=== PATIENT | male | born 1990 | race Hispanic/Latino ===

== ENCOUNTER 2018-06-20 04:57 | Emergency (ER) | payer SELFPAY ==
[2018-06-20 05:23] VITALS: BMI 23.2
--- NOTE | 2018-06-20 06:05 | ED PDOC ---
Arrival/HPI - General Chief Complaint: Psychiatric Evaluation Time Seen by Provider: 06/20/18 04:59 Historian: Parent - History of Present Illness Narrative History of Present Illness (Text): 06/20/18 05:05 27 y/o with no significant past medical history, who was found by and brought in to the emergency department by police for further evaluation after mother of patient called them reporting he was wandering in street for hours. As per mother, patient was wandering since 22:00. Mother states she followed patient in a car. Patient admits to hearing voices in his head to refuse to turn himself to authorities or divulge information to health personnel. He is escorted in by police and denies SI/HI at this time. A more complete HPI is unable to be obtained due to patient's combative state & reluctance to divulge information Time/Duration: Prior to Arrival Symptom Course: Unchanged Activities at Onset: Emotional Upset Context: Walking (found wandering in street by police) Past Medical History - Provider Review Nursing Documentation Reviewed: Yes - Travel History Have you recently traveled outside [place] w/in the past 3 mons?: No - Infectious Disease Hx of Infectious Diseases: None - Tetanus Immunization Tetanus Immunization: Up to Date - Past Medical History Past Medical History: No Previous - Cardiac Hx Cardiac Disorders: No - Psychiatric Hx Depression: No Hx Emotional Abuse: No Hx Hallucinations: Yes Hx Physical Abuse: No Hx Schizophrenia: Yes Hx Substance Use: Yes (occasional marijuana) - Past Surgical History Past Surgical History: No Previous - Suicidal Assessment Feels Threatened In Home Enviroment: No Family/Social History - Physician Review Nursing Documentation Reviewed: Yes Family/Social History: No Known Family HX Smoking Status: Never Smoked Hx Alcohol Use: No Hx Substance Use: Yes (occasional marijuana) Hx Substance Use Treatment: No Allergies/Home Meds Allergies/Adverse Reactions: Allergies No Known Allergies Allergy (Verified 06/18/14 23:52) Home Medications: Home Meds Medication Instructions Recorded Confirmed Risperidone [Risperdal] 2 mg PO DAILY 06/20/18 06/20/18 Review of Systems - Physician Review All systems were reviewed & negative as marked: Yes - Review of Systems Systems not reviewed;Unavailable: Psychotic Psychiatric: absent: Normal Physical Exam - Physical Exam Narrative Physical Exam (Text): 06/20/18 05:05 Physical exam results limited due to patient's limited willingness to comply with exam Vital Signs Reviewed: Yes Vital Signs Temp Pulse Resp BP Pulse Ox 06/20/18 15:40 98.0 F 69 19 98 06/20/18 15:14 98.1 F 66 18 112/69 98 06/20/18 11:11 98.3 F 60 20 107/63 97 06/20/18 07:30 86 18 122/71 100 06/20/18 05:30 98.2 F 101 H 18 124/79 100 Temperature: Afebrile Blood Pressure: Normal Pulse: Tachycardic Respiratory Rate: Normal Appearance: Positive for: Well-Appearing, Non-Toxic Pain Distress: None Mental Status: Positive for: Alert and Oriented X 3 - Systems Exam Respiratory/Chest: Present: Clear to Auscultation, Good Air Exchange. No: Wheezes Cardiovascular: Present: Normal S1, S2, Peripheal Pulses Present, Tachycardic Abdomen: Present: Normal Bowel Sounds. No: Tenderness, Distention, Peritoneal Signs Neurological: Present: GCS=15, CN II-XII Intact, Speech Normal Psychiatric: Present: Alert, Anxious, Agitated Medical Decision Making ED Course and Treatment: 06/20/18 05:05 Impression: 27 [email or web address] Plan: -- EKG -- Labs -- Ativan -- Haldol -- Urinalysis --Psych evaluation -- Reassess and disposition Progress Notes: 06/20/18 015 Patient noted to be beligerent towards staff. Physical and chemical restraints applied. [facility] admitting representative called and will be in to evaluate patient at 0700hrs. EKG: Ordered, reviewed, and independently interpreted the EKG. Interpretation : NSR at [address] elevation. 06/20/18 [address] Kristine Alonso who will resume the patient's care. - Lab Interpretations Lab Results: 06/20/18 05:56 06/20/18 05:56 Lab Results 06/20/18 11:00: Urine Color Yellow, Urine Appearance Clear, Urine pH 6.0, Ur Specific [place] 1.025, Urine Protein Trace H, Urine Glucose (UA) Negative, Urine Ketones 15 H, Urine Blood Negative, Urine Nitrate Negative, Urine Bilirubin Negative, Urine Urobilinogen 1.0 H, Ur Leukocyte Esterase Negative, Urine RBC 0 - 2, Urine WBC 0 - 2, Ur Epithelial Cells None, Amorphous Sediment Few, Urine Bacteria Many, Hyaline Casts 0 - 2, Urine Other Uyeast 06/20/18 11:00: Urine Opiates Screen Negative, Urine Methadone Screen Negative, Ur Barbiturates Screen Negative, Ur Phencyclidine Scrn Negative, Ur Amphetamines Screen Negative, U Benzodiazepines Scrn Negative, U Oth Cocaine Metabols Negative, U Cannabinoids Screen Positive H 06/20/18 05:56: Salicylates < 1 L, Acetaminophen < 10.0 L 06/20/18 05:56: Alcohol, Quantitative < 10 06/20/18 05:56: Sodium 141, Potassium 3.3 L, Chloride 99, Carbon Dioxide 24, Anion Gap 21 H, BUN 14, Creatinine 0.8, Est GFR ( Amer) > 60, Est GFR ( Non-Af Amer) > 60, Random Glucose 149 H, Calcium 9.9, Total Bilirubin 1.1, AST 38, ALT 38, Alkaline Phosphatase 85, Troponin I < 0.01, Total Protein 7.9, Albumin 5.0 H, Globulin 2.9, Albumin/Globulin Ratio 1.7 06/20/18 05:56: WBC 7.0, RBC 4.97, Hgb 15.6, Hct 43.3, MCV 87.1, MCH 31.4, MCHC 36.0, RDW 11.9, Plt Count 209, MPV 9.7, Gran % 42.5 L, Lymph % (Auto) 49.2 H, [place] % (Auto) 7.7 H, Eos % (Auto) 0.3 L, Baso % (Auto) 0.3, Gran # 2.96, Lymph # (Auto) 3.4, [place] # (Auto) 0.5, Eos # (Auto) 0.0, Baso # (Auto) 0.02 - RAD Interpretation Radiology Orders: 06/20/18 08:25 CHEST PORTABLE [RAD] Stat - EKG Interpretation Interpreted by ED Physician: Yes Type: 12 lead EKG - Medication Orders Current Medication Orders: Discontinued Medications Haloperidol Lactate (Haldol) 5 mg IM STAT STA PRN Reason: Protocol Stop: 06/20/18 05:57 Last Admin: 06/20/18 05:56 Dose: 5 mg IM Administration Charges Document 06/20/18 05:56 AD (Rec: 06/20/18 06:09 AD [id number]) Injection Site MAR Injection Site Left Vastus Lateralis Charges for Administration # of IM Administrations 1 Lorazepam (Ativan) 2 mg IM ONCE ONE PRN Reason: Protocol Stop: 06/20/18 05:57 Last Admin: 06/20/18 05:56 Dose: 2 mg IM Administration Charges Document 06/20/18 05:56 AD (Rec: 06/20/18 06:08 AD [id number]) Injection Site MAR Injection Site Right Vastus Lateralis Charges for Administration # of IM Administrations 1 - Scribe Statement The provider has reviewed the documentation as recorded by the Scribe Ammy Benitezh All medical record entries made by the Scribe were at my direction and personally dictated by me. I have reviewed the chart and agree that the record accurately reflects my personal performance of the history, physical exam, medical decision making, and the department course for this patient. I have also personally directed, reviewed, and agree with the discharge instructions and disposition. Disposition/Present on Arrival - Present on Arrival Any Indicators Present on Arrival: No History of DVT/PE: No History of Uncontrolled Diabetes: No Urinary Catheter: No History of Decub. Ulcer: No History Surgical Site Infection Following: None - Disposition Have Diagnosis and Disposition been Completed?: Yes Diagnosis: Schizophrenia Disposition: HOME/ ROUTINE Disposition Time: 07:00 Condition: STABLE Discharge Instructions (ExitCare): Schizophrenia Print Language: MAORI Additional Instructions: JEANE PENNINGTON, thank you for letting us take care of you today. Your provider was Dr. Redd Alonso and you were treated for psychosis. The emergency medical care you received today was directed at your acute symptoms. If you were prescribed any medication, please fill it and take as directed. It may take several days for your symptoms to resolve. Return to the Emergency Department if your symptoms worsen, do not improve, or if you have any other problems. Please contact your doctor or call one of the physicians/clinics you have been referred to that are listed on the Patient Visit Information form that is included in your discharge packet. Bring any paperwork you were given at discharge with you along with any medications you are taking to your follow up visit. Our treatment cannot replace ongoing medical care by a primary care provider outside of the emergency department. Thank you for allowing the [facility] team to be part of your care today. If you had an X-Ray or CT scan: A Radiologist will review the ED reading if any change in treatment is needed we will contact you. If you had a blood, urine, or wound culture: It will take several days for the results, if any change in treatment is needed we will contact you. If you had an STI test: It will take 48 hours for the results. Please call after 1 week if you have not heard back. Referrals: FAMILY PROVIDER,NO [Primary Care Provider] - Follow up with primary Forms: [place] (Maldivian)
[2018-06-20 06:16] LABS: ALB/GLOB RATIO 1.7 (1.1-1.8); ALT/SGPT 38 U/L (7-56); AST/SGOT 38 U/L (17-59); BLOOD UREA NITROGEN 14 mg/dL (7-21); CALCIUM 9.9 mg/dL (8.4-10.5); GFR AFRICAN-AMERICAN > 60; GFR NON-AFRICAN AMERICAN > 60
[2018-06-20 06:17] LABS: ACETAMINOPHEN < 10.0 ug/ml (10.0-20.0); BASO # 0.02 K/mm3 (0.0-2.0); BASO % 0.3 % (0.0-3.0); EOS % 0.3 % (1.5-5.0); GRAN # 2.96 (1.4-6.5); GRAN % 42.5 % (50.0-68.0); HEMOGLOBIN 15.6 g/dL (14.0-18.0); LYMPH # 3.4 (1.2-3.4); LYMPH % 49.2 % (22.0-35.0); MEAN CELL VOLUME 87.1 fl (80.0-105.0); MEAN CORPUSCULAR HEMOGLOBIN 31.4 pg (25.0-35.0); MEAN PLATELET VOLUME 9.7 fl (7.0-11.0); MONO # 0.5 (0.1-0.6); MONO % 7.7 % (1.0-6.0); RBC 4.97 10^6/uL (3.5-6.1); RED CELL DISTRIBUTION WIDTH 11.9 % (11.5-14.5); SALICYLATE < 1 mg/dL (2.0-20.0)
[2018-06-20 06:27] LABS: TROPONIN I < 0.01 ng/mL
--- NOTE | 2018-06-20 07:36 | ED PDOC ---
Physical Exam Vital Signs Temp Pulse Resp BP Pulse Ox 06/20/18 15:14 98.1 F 66 18 112/69 98 06/20/18 11:11 98.3 F 60 20 107/63 97 06/20/18 07:30 86 18 122/71 100 06/20/18 05:30 98.2 F 101 H 18 124/79 100 Medical Decision Making ED Course and Treatment: 06/20/18 07:[address] Taveras, patient presented to the ED with acute agitation and psychosis with hx psychotic mental disorder. Patient was not able to be talked down and required physical and medication sedation to control behavior. Patient being worked up for acute on recurrent psychosis, patient reported to not taking his prescribed medications. 06/20/18 08:14 As per mother , patient has a hx of schizophreniam, dx 1 year ago, was on stable regimen of ripseridone 4mg which was decreased to 2mg for the past 5 weeks. 06/20/18 11:22 patient is medically stable for psych eval, admit, trasfer if needed. Case has been discussed with [facility] and the patient is being screened for [facility] admit. 06/20/18 15:48 patient seen by [facility], patient has been cleared for discharge, patient does not appear to be an acute threat to himself or others. patient does not require hospitalization and can be discharged home. - Lab Interpretations Lab Results: 06/20/18 05:56 06/20/18 05:56 Lab Results 06/20/18 11:00: Urine Color Yellow, Urine Appearance Clear, Urine pH 6.0, Ur Specific [place] 1.025, Urine Protein Trace H, Urine Glucose (UA) Negative, Urine Ketones 15 H, Urine Blood Negative, Urine Nitrate Negative, Urine Bilirubin Negative, Urine Urobilinogen 1.0 H, Ur Leukocyte Esterase Negative, Urine RBC 0 - 2, Urine WBC 0 - 2, Ur Epithelial Cells None, Amorphous Sediment Few, Urine Bacteria Many, Hyaline Casts 0 - 2, Urine Other Uyeast 06/20/18 11:00: Urine Opiates Screen Negative, Urine Methadone Screen Negative, Ur Barbiturates Screen Negative, Ur Phencyclidine Scrn Negative, Ur Amphetamines Screen Negative, U Benzodiazepines Scrn Negative, U Oth Cocaine Metabols Negative, U Cannabinoids Screen Positive H 06/20/18 05:56: Salicylates < 1 L, Acetaminophen < 10.0 L 06/20/18 05:56: Alcohol, Quantitative < 10 06/20/18 05:56: Sodium 141, Potassium 3.3 L, Chloride 99, Carbon Dioxide 24, Anion Gap 21 H, BUN 14, Creatinine 0.8, Est GFR ( Amer) > 60, Est GFR ( Non-Af Amer) > 60, Random Glucose 149 H, Calcium 9.9, Total Bilirubin 1.1, AST 38, ALT 38, Alkaline Phosphatase 85, Troponin I < 0.01, Total Protein 7.9, Albumin 5.0 H, Globulin 2.9, Albumin/Globulin Ratio 1.7 06/20/18 05:56: WBC 7.0, RBC 4.97, Hgb 15.6, Hct 43.3, MCV 87.1, MCH 31.4, MCHC 36.0, RDW 11.9, Plt Count 209, MPV 9.7, Gran % 42.5 L, Lymph % (Auto) 49.2 H, [place] % (Auto) 7.7 H, Eos % (Auto) 0.3 L, Baso % (Auto) 0.3, Gran # 2.96, Lymph # (Auto) 3.4, [place] # (Auto) 0.5, Eos # (Auto) 0.0, Baso # (Auto) 0.02 - RAD Interpretation Narrative RAD Interpretations (Text): 06/20/18 09:00 cxr my read: no focal infiltrate, no ptx, no cardiomegaly Radiology Orders: 06/20/18 08:25 CHEST PORTABLE [RAD] Stat Test Engineering Intern: ED Physician - Medication Orders Current Medication Orders: Discontinued Medications Haloperidol Lactate (Haldol) 5 mg IM STAT STA PRN Reason: Protocol Stop: 06/20/18 05:57 Last Admin: 06/20/18 05:56 Dose: 5 mg IM Administration Charges Document 06/20/18 05:56 AD (Rec: 06/20/18 06:09 AD [id number]) Injection Site MAR Injection Site Left Vastus Lateralis Charges for Administration # of IM Administrations 1 Lorazepam (Ativan) 2 mg IM ONCE ONE PRN Reason: Protocol Stop: 06/20/18 05:57 Last Admin: 06/20/18 05:56 Dose: 2 mg IM Administration Charges Document 06/20/18 05:56 AD (Rec: 06/20/18 06:08 AD [id number]) Injection Site MAR Injection Site Right Vastus Lateralis Charges for Administration # of IM Administrations 1 - Scribe Statement The provider has reviewed the documentation as recorded by the Scribe Rupinder Reynolds All medical record entries made by the Scribe were at my direction and personally dictated by me. I have reviewed the chart and agree that the record accurately reflects my personal performance of the history, physical exam, medical decision making, and the department course for this patient. I have also personally directed, reviewed, and agree with the discharge instructions and disposition. Disposition/Present on Arrival - Present on Arrival Any Indicators Present on Arrival: No History of DVT/PE: No History of Uncontrolled Diabetes: No Urinary Catheter: No History of Decub. Ulcer: No History Surgical Site Infection Following: None - Disposition Have Diagnosis and Disposition been Completed?: Yes Diagnosis: Schizophrenia Disposition: HOME/ ROUTINE Disposition Time: 15:49 Patient Problems: Current Active Problems Problem Status Onset Schizophrenia Acute Condition: STABLE Discharge Instructions (ExitCare): Schizophrenia Print Language: KYRGYZ Additional Instructions: JEANE PENNINGTON, thank you for letting us take care of you today. Your provider was Dr. Redd Alonso and you were treated for psychosis. The emergency medical care you received today was directed at your acute symptoms. If you were prescribed any medication, please fill it and take as directed. It may take several days for your symptoms to resolve. Return to the Emergency Department if your symptoms worsen, do not improve, or if you have any other problems. Please contact your doctor or call one of the physicians/clinics you have been referred to that are listed on the Patient Visit Information form that is included in your discharge packet. Bring any paperwork you were given at discharge with you along with any medications you are taking to your follow up visit. Our treatment cannot replace ongoing medical care by a primary care provider outside of the emergency department. Thank you for allowing the [facility] team to be part of your care today. If you had an X-Ray or CT scan: A Radiologist will review the ED reading if any change in treatment is needed we will contact you. If you had a blood, urine, or wound culture: It will take several days for the results, if any change in treatment is needed we will contact you. If you had an STI test: It will take 48 hours for the results. Please call after 1 week if you have not heard back. Referrals: FAMILY PROVIDER,NO [Primary Care Provider] - Follow up with primary
--- NOTE | 2018-06-20 10:29 | CARD ---
APPROVED REPORT Date of service: 06/20/2018 EKG Measurement Heart [id number] <Conclusion> Normal sinus rhythm Normal ECG
[2018-06-20 11:15] LABS: URINE BILIRUBIN NEGATIVE (NEGATIVE); URINE BLOOD NEGATIVE (NEGATIVE); URINE GLUCOSE (UA) NEGATIVE (NEGATIVE); URINE LEUKOCYTE ESTERASE NEGATIVE Leu/uL (NEGATIVE); URINE PROTEIN TRACE mg/dL (<30 mg/dL)
[2018-06-20 11:17] LABS: URINE APPEARANCE CLEAR (CLEAR); URINE COLOR YELLOW (YELLOW)
[2018-06-20 11:30] LABS: URINE AMORPHOUS SEDIMENT FEW; URINE BACTERIA MANY (NEG); URINE HYALINE CAST 0 - 2 /hpf; URINE RBC 0 - 2 /hpf (0-2); URINE WBC 0 - 2 /hpf (0-6)
[2018-06-20 11:37] LABS: BARBITURATES, UR NEGATIVE (NEGATIVE); BENZODIAZEPINES, UR NEGATIVE (NEGATIVE); OPIATES, UR NEGATIVE (NEGATIVE); PHENCYCLIDINE, UR NEGATIVE (NEGATIVE)
[2018-06-20 15:14] VITALS: BP 112/69; O2SAT 98
--- NOTE | 2018-06-20 15:21 | RAD ---
Date of service: 06/20/2018 HISTORY: medical screening COMPARISON: Chest dated 06/19/2014 FINDINGS: LUNGS: No active pulmonary disease. PLEURA: No significant pleural effusion identified, no pneumothorax apparent. CARDIOVASCULAR: Normal. OSSEOUS STRUCTURES: No there appears be a mild levoscoliosis centered at the thoracolumbar junction. VISUALIZED UPPER ABDOMEN: Normal. OTHER FINDINGS: None. IMPRESSION: No active disease.
[2018-06-20 16:38] VITALS: PULSE 69; RESP 19; TEMP 98
== END 2018-06-20 15:40 | disposition home or self-care (01) ==
LOC: ED 04:57
DX: F20.9 Schizophrenia, unspecified (principal)
CPT/HCPCS: 71045; 80053; 81001; 84484; 85025; 90791; 93005; 96372; 99284; G0480; J1630; J2060